=== PATIENT | male | born 1940 | race Caucasian/White ===

== ENCOUNTER 2021-03-24 12:51 | Outpatient (CLI) | payer MEDICARE, SELFPAY ==
--- NOTE | 2021-03-24 13:17 | CT_ITS ---
WS: [id number] CT CHEST AND ABDOMEN TECHNIQUE: Contrast-enhanced CT of the chest and abdomen with coronal and sagittal reformatted images . CLINICAL INFORMATION: COPD, WT LOSS, RENAL INSUFFIENCY, HX OF PROSTATE CANCER COMPARISON: CT abdomen 2007 DLP: 1414.[address] scans at [facility] use at least one of these dose optimization techniques: automat ed exposure control; mA and/or kV adjustment per patient size (includes targeted exams where dose is matched to clinical indication); or iterative reconstruction. CT CHEST: Right hilar lymphadenopathy measuring 2.0 cm with bronchovascular thickening along the right hilum. D iffuse soft tissue thickening with mild narrowing involving the right mainstem bronchus. Dense opacif ication involving the right upper lobe inferior segment posterior and medial with soft tissue airspac e mass measuring 5.2 x 6.4 cm suspicious for neoplasm. Central low-attenuation change likely due to n ecrosis. Additional enlarged right hilar lymph nodes. Additional enlarged right peribronchial and ant erior mediastinal lymph nodes. Associated pleural thickening right upper lobe. Moderate to advanced chronic emphysematous changes. Interstitial thickening in the right upper lobe a nd adjacent right lower lobe suspicious for lymphangitic metastasis. Hazy groundglass nodule right up per lobe measuring 7 mm. Left lung is well aerated. A few calcified granulomas. Proximal main pulmonary arteries are normal. Tiny pericardial effusion. Coronary calcification. Moder ate atheromatous disease thoracic aorta Normal thyroid gland. Dense calcification at the great vessel origins. 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 At least moderate stenosis left common carotid arter y origin. CT ABDOMEN: Diffuse fatty infiltration liver. Normal portal vein and splenic vein. Normal gallbladder. Normal spl een. Fatty atrophy of the pancreas. Normal GE junction. Adrenal glands are normal. Normal renal parenchymal enhancement. No hydronephrosis. Bilateral renal c ortical atrophy. Slightly ectatic infrarenal abdominal aorta measuring 2.6 x 2.4 CM. Normal portal ve in and splenic vein. Dense calcification bilateral iliac arteries with moderate to severe stenosis right proximal common i liac artery. 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 Adrenal glands are normal. No periaortic lymphadenopathy. Pelvis is not included on this examination. Tiny fat-containing umbilical hernia. CT/CT chest abdomen w con* IMPRESSION: 1. Right hilar mass with bronchovascular thickening and narrowing of the right mainstem bronchus. Right upper lobe soft tissue mass along the fissure most co nsistent with neoplasm. This measures 6.4 x 5.2 cm with some central low attenu ation change likely necrosis. This can be further evaluated with bronchoscopy. 2. Additional suspicious enlarged peribronchial and right hilar lymph nodes. 3. Diffuse interstitial thickening in the right lower lobe and adjacent right upper lobe suspicious for lymphangitic metastasis. 4. Hazy groundglass nodule right upper lobe measuring 7 mm may represent metas tatic disease but indeterminant. 5. Pleural thickening right lower lobe. 6. No adenopathy or evidence of metastatic disease in the abdomen. Pelvis is n ot included on this examination. 7. Hepatomegaly with diffuse fatty infiltration of the liver. 8. Slightly ectatic infrarenal abdominal aorta described above measuring 2.4 x 2.6 cm.
[2021-03-24] MEDS: iodixanol 320 mg/mL 100mL Btl IV (13:57)
== END 2021-03-24 12:52 | disposition home or self-care (01) ==
PROVIDERS: PCP Nurse Practitioner Family; Visit Provider Nurse Practitioner Family
DX: J44.9 Chronic obstructive pulmonary disease, unspecified (principal); R63.4 Abnormal weight loss; N28.9 Disorder of kidney and ureter, unspecified; Z85.46 Personal history of malignant neoplasm of prostate; I77.811 Abdominal aortic ectasia; R16.0 Hepatomegaly, not elsewhere classified; K76.0 Fatty (change of) liver, not elsewhere classified; R91.1 Solitary pulmonary nodule
CPT/HCPCS: 71260; 74160; Q9967